=== PATIENT | female | born 1955 | race Caucasian/White ===

== ENCOUNTER → 2016-04-29 | Outpatient (CLI) | payer MEDICARE, OTHER ==
[2014-06-20 14:41] VITALS: BP 149/91
[~2016-04-29] MED LIST: ALBU0.63; Amoxicillin/Potassium Clav PO; BUDE10.2 IH; Doxycycline Hyclate PO; FLUT1DIS3 INH; IPRA0.2S5 NEB; LORA0.5T PO; OXYC-250 PO; TRAM50TA PO; ZOLP10TA PO
--- NOTE | 2016-04-29 15:54 | RAD ---
PROCEDURE MRI lumbar spine without contrast. HISTORY Low back pain and incontinence. TECHNIQUE Sagittal T1, sagittal T2, sagittal STIR, axial T1, and axial T2 sequences are provided. COMPARISON None. FINDINGS There is no malalignment. There is no marrow edema. There is fatty replacement of the inferior endplate of L2 and L3. There is diffuse disc desiccation. Disc height is relatively maintained. The conus medullaris is normal in signal intensity and in position. Subcutaneous edema is noted. The numbering system assumes 5 lumbar type vertebral bodies. Findings by individual level are as follows: L1-L2: Mild disc bulge and mild to moderate facet and ligamentum flavum hypertrophy are noted. Midline AP diameter of the thecal sac is minimally narrowed to 11 millimeters. There is no foraminal narrowing. L2-L3: Minimal disc bulge and facet hypertrophy are noted without canal stenosis or foraminal compromise. L3-L4: Mild disc bulge and minimal facet hypertrophy are noted without canal or foraminal compromise. L4-L5: Minimal disc bulge is noted with a left subarticular annular fissure. There is facet hypertrophy. There is slight lateral recess narrowing but no canal stenosis. There is mild foraminal narrowing. L5-S1: Minimal disc bulge is noted without canal or foraminal compromise. IMPRESSION Mild degenerative changes in the lumbar spine are greatest at L1-L2. Electronically signed by: Lopez Tavarez MD (Apr 29, 2016 15:53:01)
== END | disposition home or self-care (01) ==
LOC: MRI 14:14
PROVIDERS: ATTEND Family Medicine
DX: M48.06 Spinal stenosis, lumbar region (principal); R15.9 Full incontinence of feces
CPT/HCPCS: 72148

== ENCOUNTER → 2016-12-17 | Outpatient (CLI) | payer MEDICARE, OTHER ==
[2014-06-20 14:41] VITALS: BP 149/91
[~2016-12-17] MED LIST changes: -OXYC-250 PO; +OXYC-328 PO
--- NOTE | 2016-12-17 16:17 | KCIC ---
Examination: MRI of the right shoulder without contrast HISTORY: History of right shoulder pain for 9 months, felt pop while throwing a heavy object. COMPARISON: None available TECHNIQUE: Multiplanar, multisequence MR imaging of the right shoulder performed. FINDINGS: The long biceps tendon is within the bicipital groove. The attachment of the long head of the biceps tendon to the superior labral anchor grossly appears intact. The attachment of the subscapularis tendon grossly appears intact. There is mild tendinosis of the subscapularis tendon. There is small focus of full-thickness tear of the supraspinatus tendon in its midportion measuring 9 mm in AP dimension with extension of fluid into subacromial subdeltoid bursa. There is moderate tendinosis of the supraspinatus and infraspinatus tendon. The attachment of the teres minor tendon grossly appears intact. There is increased signal identified in the labrum throughout likely secondary to degeneration. There is increased signal identified in the superior labrum extending posteriorly, best visualized on series 3 image #15 could be secondary to degeneration or labral tear. Small shoulder joint effusion. Moderate degenerative changes acromioclavicular joint. Acromion is type II. Small inferior osteophyte formation identified at acromioclavicular joint abutting the supraspinatus tendon. The muscle bulk grossly appears unremarkable. There is some obliteration of fat in the rotator interval. IMPRESSION: 1. Small focus of full-thickness tear of the supraspinatus tendon with extension of fluid into the subacromial subdeltoid bursa. There is downsloping of the acromion with degenerative changes identified in the acromioclavicular joint with small inferior osteophyte formation abutting the supraspinatus tendon, correlate for impingement. 2. Moderate tendinosis of the supraspinatus, infraspinatus tendon. Mild tendinosis subscapularis tendon. 3. Increased signal identified throughout the labrum likely degeneration. There is a small focus of increased signal identified in superior labrum extending posteriorly could be secondary to degeneration or labral tear. 4. Obliteration of fat in the rotator interval. Correlate for adhesive capsulitis. 5. Moderate degenerative changes glenohumeral joint, acromioclavicular joint. Electronically signed by: Armando Selby MD (12/17/2016 4:13 PM) [id number]
== END | disposition home or self-care (01) ==
LOC: KCIC MRI 15:13
PROVIDERS: ATTEND Orthopaedic Surgery Sports Medicine
DX: M75.101 Unspecified rotator cuff tear or rupture of right shoulder, not specified as traumatic (principal); M25.711 Osteophyte, right shoulder
CPT/HCPCS: 73221